=== PATIENT | male | born 1975 | race Caucasian/White ===

== ENCOUNTER 2020-07-01 16:09 | Emergency (ER) | payer OTHER, SELFPAY ==
[2020-07-01 16:13] VITALS: BP 125/83; PULSE 93; RESP 15; TEMP 36.8; O2SAT 98; BMI 29.1
[2020-07-01] MEDS: TET,DIPH,PERTUSS(ACELL),VAC/PF 0.5 ML SYRINGE IM (17:26)
--- NOTE | 2020-07-01 18:25 | ED.WOUNDLAC ---
HPI - Wound/Laceration General Chief Complaint: Wound/Laceration Stated Complaint: Cut finger Time Seen by Provider: 07/01/20 17:51 Source: patient Mode of arrival: Ambulatory Limitations: no limitations History of Present Illness HPI narrative: Patient is a 44-year-old who presents with left middle finger laceration. He was at work when he cut it with a hose clamp. He has no numbness tingling or weakness. He was given a tetanus emergency department. Onset (ago): hour(s) Related Data Allergies Allergy/AdvReac Type Severity Reaction Status Date / Time No Known Drug Allergies Allergy Verified 07/01/20 16:15 Review of Systems Review of Systems Narrative: GENERAL: Denies chills,fever HEENT: Denies throat pain RESPIRATORY: Denies dyspnea, cough, wheezing CARDIOVASCULAR: Denies chest pain, palpitations GASTROINTESTINAL: Denies nausea, vomiting MUSCULOSKELETAL: Denies extremity pain, injury SKIN: See HPI NEUROLOGIC: Denies weakness, dizziness, headache, numbness 8 point review of systems is negative except for those stated above and HPI Patient History Medical History Patient denies medical problems Social History Smoking Status: Current every day smoker Smoking Status: Current every day smoker alcohol intake frequency: holidays/special occasions only Substance Use Type: marijuana Exam Initial Vital Signs Initial Vital Signs: Vital Signs Temperature 98.3 F 07/01/20 16:13 Pulse Rate 93 H 07/01/20 16:13 Respiratory Rate 15 07/01/20 16:13 Blood Pressure 125/83 07/01/20 16:13 Pulse Oximetry 98 07/01/20 16:13 GENERAL: Well-appearing, well-nourished and in no acute distress. CARDIOVASCULAR: peripheral pulses in tact, cap refill <2 sec RESPIRATORY: No respiratory distress, speaks in full sentences without difficulty EXTREMITIES: Normal range of motion, no clubbing or edema. Neurovascularly intact NEUROLOGICAL: Cranial nerves II through XII grossly intact. Normal gait and speech. SKIN: 2 cm laceration on the medial side of left middle finger. Good skin approximation minimal exposure Procedures Laceration Repair Laceration 1: Site: other (Middle finger) Side (If applicable): left Size (cm): 2 Description: linear Depth: simple, single layer Pre-repair: wound explored and irrigated extensively Skin layer closed with: steri-strips Course Orders Ordered: Discontinued Medications Diphtheria/Tetanus/Acell Pertussis (Tet,Diph,Pertuss(Acell),Vac/Pf 0.5 Ml Syringe) 0.5 ml IM .ONCE ONE Stop: 07/01/20 16:19 Last Admin: 07/01/20 17:26 Dose: 0.5 ml Documented by: JENNY Vital Signs Vital signs: Vital Signs - 8 hr 07/01/20 16:13 Temperature 98.3 F Pulse Rate 93 H Respiratory Rate 15 Blood Pressure 125/83 Pulse Oximetry 98 Discharge Plan Departure Patient Disposition: Home Clinical Impression: Laceration of left middle finger Qualifiers: Encounter type: initial encounter Damage to nail status: without damage Foreign body presence: without foreign body Qualified Code(s): S61.213A - Laceration without foreign body of left middle finger without damage to nail, initial encounter Instructions: DI for Laceration Repair-Skin Closure Strips Activity Restrictions/Additional Instructions: *You have been diagnosed with left middle finger laceration *What to do: Steri-Strips will fall off on their own. Keep finger clean and dry with soap and water. at this time no need for antibiotic however please continue to monitor *Continue to take medications as directed *Follow up with your primary care provider in 2-3 days *Return to ER if you should have redness pus swelling pain [or] any new, worsening or concerning symptoms
--- NOTE | 2020-07-01 18:37 | PC.NURSE ---
steri strips applied by Dr ibarra.
== END 2020-07-01 18:38 | disposition home or self-care (01) ==
PROVIDERS: Emergency Provider Emergency Medicine
DX: S61.213A Laceration without foreign body of left middle finger without damage to nail, initial encounter (principal); W26.8XXA Contact with other sharp object(s), not elsewhere classified, initial encounter; Y99.0 Civilian activity done for income or pay
CPT/HCPCS: 90471; 99283; 90715